=== PATIENT | male | born 1945 | race Caucasian/White ===

== ENCOUNTER 2017-07-22 09:32 | Day surgery (SDC) | payer MEDICARE ==
[2017-07-22] VITALS (10 sets, daily range): BP systolic 115–139; BP diastolic 64–81
[~2017-07-22] VITALS: Ht 162.6 cm; Wt 65.8 kg
[~2017-07-22 09:32] MED LIST: LR 1000ml 1,000 ML IVLG SCH
[2017-07-22] MEDS ORDERED: METFORMIN HCL500 M1 ORAL (10:04)
[2017-07-22] MEDS ORDERED: CRESTOR20 MG ORAL (10:04)
--- NOTE | 2017-07-22 10:34 | Anethesia Preoperative Eval ---
Anesthesia Pre-op PMH/ROS General Date of Evaluation: Jul 22, 2017 Time of Evaluation: 10:28 Anesthesiologist: gerry ASA Score: ASA 3 Mallampati Score Class I : Soft palate, uvula, fauces, pillars visible Class II: Soft palate, uvula, fauces visible Class III: Soft palate, base of uvula visible Class IV: Only hard plate visible Mallampati Classification: Class II Surgeon: litzy Diagnosis: abdominal pain Surgical Procedure: egd/colonoscopy Anesthesia History: none Social History: current smoker Family History: no anesthesia problems Allergies: Coded Allergies: No Known Allergies (Unverified , 07/21/17) Medications: see eMAR Past Medical History Cardiovascular: Reports: other - hypercholesterolemia Gastrointestinal/Genitourinary: Reports: other - ibs, prostate cancer Neurologic/Psychiatric: Reports: other - decreased visual and auditory acuity, Endocrine: Reports: DM Hematology/Immune: Reports: other - cancer Anesthesia Pre-op Phys. Exam Physician Exam Last Vital Signs Date Time Temp Pulse Resp B/P (MAP) Pulse Ox O2 Delivery O2 Flow Rate FiO2 07/22/17 10:05 97.9 68 18 126/72 96 Room Air Constitutional: NAD Neurologic: CN 2-12 intact Cardiovascular: RRR Respiratory: CTA Gastrointestinal: S/NT/ND Airway Exam Mallampati Score: Class II MO: full Neck: supple TMD: 2fb ROM: full Anesthesia Pre-op A/P Risk Assessment & Plan Assessment: asa3 Plan: mac Status Change Before Surgery: No Pre-Antibiotics Drug: QUINCY Gardner Jul 22, 2017 10:34
[2017-07-22] MEDS ORDERED: LR 1000ml 1,000 ML IVLG SCH (10:38)
[2017-07-22] MEDS ORDERED: Midazolam 2mg/2ml Inj IVP PRN (10:45)
[2017-07-22] MEDS ORDERED: DiphenhydrAMINE 50mg/ml Inj IVP PRN (10:45)
[2017-07-22] MEDS ORDERED: fentaNYL 100 mcg/2 mL IV PRN (10:45)
[2017-07-22] MEDS ORDERED: Atropine Inj 1mg/10ml Syr IV PRN (10:45)
--- NOTE | 2017-07-22 11:16 | Short Stay Surgery H&P ---
History of Present Illness History of Present Illness Chief Complaint Abdominal pains and GERDs/screening colon HPI Chad Calles is a 72 year old male who was admitted on for Abdominal Pain/ screening colon Patient History Allergies: Coded Allergies: No Known Allergies (Unverified , 07/21/17) PAST MEDICAL HISTORY: (1) Diabetes Past Surgeries: Social History: Medication History Scheduled Metformin Hcl* (Metformin Hcl*), 500 MG ORAL TWICE A DAY, (Reported) Rosuvastatin Calcium* (Crestor*), 20 MG ORAL DAILY, (Reported) Review of Systems Cardiovascular: Reports: no symptoms Respiratory: Reports: no symptoms Skeletal: Reports: no symptoms Gastrointestinal: Reports: gastro esophageal reflux disease Genitourinary: Reports: no symptoms Neurologic: Reports: no symptoms Endocrine: Reports: diabetes - type 2 Hematologic: Reports: no symptoms Physical Exam Vital Signs Last Vital Signs Date Time Temp Pulse Resp B/P (MAP) Pulse Ox O2 Delivery O2 Flow Rate FiO2 07/22/17 10:05 97.9 68 18 126/72 96 Room Air Skin: normal HENT: normal Heart: normal Lungs: normal Abdomen: abnormal Extremities: normal Genitourinary: normal Plan Plan of Care Upper and lower Gi endoscopies Preop Interventions None. Summary of Findings See the reports. Final Diagnosis: Attestation Are the patient's medical conditions optimized for surgery? Attestation Response: yes MANA PINA Jul 22, 2017 11:16
--- NOTE | 2017-07-22 11:17 | Pre-Procedure Note/Attestation ---
Pre-Procedure Note/Attestation Complete Prior to Procedure Planned Procedure: left Procedure Narrative: Endoscopic examination of the upper and the lower GI tract. Indications for Procedure Pre-Operative Diagnosis: R/O Peptic Ulcer/Gastritis/Colon polyp/tumor. Attestation I attest that I discussed the nature of the procedure; its benefits; risks and complications; and alternatives (and the risks and benefits of such alternatives ), prior to the procedure, with the patient (or the patient's legal petroleum products sales representative). I attest that, if there was a reasonable possibility of needing a blood transfusion, the patient (or the patient's legal petroleum products sales representative) was given the [facility] standardized written summary, pursuant to the [employer] Riesel Blood Safety Act ([place] Health and Safety Code # 1645, as amended). I attest that I re-evaluated the patient just prior to the surgery and that there has been no change in the patient's H&P, except as documented below: YOVANI,SAID Jul 22, 2017 11:17
[2017-07-22] MEDS ORDERED: Lidocaine 1% MPF 10mg/ml 5ml ONE (11:30)
[2017-07-22] MEDS ORDERED: LR 1000ml ONE (11:30)
[2017-07-22] MEDS ORDERED: Propofol 200mg/20ml IV ONE (11:30)
--- NOTE | 2017-07-22 11:52 | Endoscopy Procedure Note ---
Endoscopy Procedure Note Procedures Performed: EGD - Completely Normal Upper GI endoscopy , random biopsy done from gastric body., colonoscopy - Completely Normal total colonoscopy. Specimen: yes Pt Tolerated Procedure Well: Yes Estimated Blood Loss: none Anesthesiologist: Dr. Chen Anesthesia: moderate sedation Medication Given: see anesthesia record Implant(s) used?: No 50 yrs or older w/o bx or poly: Yes 10yrs. F/U not recommended: Yes If not recommended, why?: Med reason:<3 yrs.: System Reason:<3 yrs.: Last colonoscopy >= to 3yrs: Yes MANA PINA Jul 22, 2017 11:52
--- NOTE | 2017-07-22 11:53 | Discharge Instructions ---
Discharge Instructions Discharge Instructions Follow up with: See the docotor after two weeks in the office For Congestive Heart Failure Reminder Report to your physician any weight gain of 5 pounds or more in one week. MANA PINA Jul 22, 2017 11:53
--- NOTE | 2017-07-22 12:43 | Immediate Post-Op Evaluation ---
Immediate Post-Op Evalulation Immediate Post-Op Evalulation Procedure: egd/colonoscopy Date of Evaluation: Jul 22, 2017 Time of Evaluation: 12:12 IV Fluids: 250ml lr Blood Products: none Estimated Blood Loss: negligible Blood Pressure Systolic: 126 Blood Pressure Diastolic: 72 Pulse Rate: 55 Respiratory Rate: 18 O2 Sat by Pulse Oximetry: 99 Temperature (Fahrenheit): 97.1 Pain Score (1-10): 0 Nausea: No Vomiting: No Complications none Patient Status: awake, reacts, patent Hydration Status: adequate Drug: QUINCY Gardner Jul 22, 2017 12:43
--- NOTE | 2017-07-22 12:45 | 48 Hour Post Anesthesia Eval ---
Post Anesthesia Evaluation Procedure: egd/colonoscopy Date of Evaluation: Jul 22, 2017 Time of Evaluation: 12:14 Blood Pressure Systolic: 122 0: 77 Pulse Rate: 77 Respiratory Rate: 18 Temperature (Fahrenheit): 97.1 O2 Sat by Pulse Oximetry: 100 Airway: patent Nausea: No Vomiting: No Pain Intensity: 0 Hydration Status: adequate Cardiopulmonary Status: stable Mental Status/LOC: patient returned to baseline Post-Anesthesia Complications: none Follow-up care needed: N/A QUINCY STAPLES Jul 22, 2017 12:45
--- NOTE | 2017-07-22 21:31 | Procedure Note ---
DATE OF PROCEDURE: 07/22/2017 SURGEON: Concepción Little M.D. PROCEDURE: Total colonoscopy. PREOPERATIVE DIAGNOSES: 1. Screening colonoscopy. 2. Abdominal pain. POSTOPERATIVE DIAGNOSIS: Completely normal total colonoscopy. MEDICATION USED: Per Dr. Chen, anesthesiologist. INSTRUMENT: GIF Olympus video colonoscope. DESCRIPTION OF PROCEDURE: The patient after arriving in the endoscopy unit, was told about risks and benefits of the procedure, which he accepted and signed informed consent. He was then put on the left lateral decubitus position. After adequate IV sedation, the scope was gently passed through the anal area and examination of this section revealed completely normal finding without any evidence of tumor, polyps, etc. Finally, the scope was passed through the left colon reaching towards the splenic flexure, transverse colon, hepatic flexure, and finally was guided into the ascending colon all the way to the base of the cecum. All these areas also remained to be completely normal. There was no any evidence of polyps, tumors, stricture, bleeding site, colitis, ulcers, etc. Finally, within 6 minutes, the scope was gradually pulled out and no other findings were noted and the colon cleanup was adequate. The patient tolerated the procedure well and left the endoscopy room in a good condition. Concepción Little M.D. DR: Shantell JOB#: [id number] CC:
--- NOTE | 2017-07-22 21:31 | Operative Note - Dictated ---
SURGEON: Concepción Little M.D. PROCEDURE: Esophagogastroduodenoscopy with biopsy. PREOPERATIVE DIAGNOSES: 1. Abdominal pain. 2. History of gastroesophageal reflux. POSTOPERATIVE DIAGNOSIS: Completely normal upper gastrointestinal endoscopy, biopsy was taken per random from gastric body. MEDICATION USED: Per Dr. Chen, anesthesiologist. INSTRUMENT: GIF Olympus upper gastrointestinal video endoscope. DESCRIPTION OF PROCEDURE: The patient after arriving in the endoscopy unit, was told about risks and benefits of the procedure, which he accepted and signed informed consent. At this time, he was put on the left lateral decubitus position. After adequate IV sedation, the scope was gently passed through the cricopharyngeal area and was lodged in the upper esophagus and gradually advanced towards gastroesophageal junction. The entire length of esophagus looked normal and there was no any evidence of ulceration, inflammatory process, stricture, etc. GE junction also looked normal without any evidence of Uriostegui's or hiatal hernia. At this time, the scope was advanced into the stomach. Gastric cavity was distended with insufflation of air. The areas of the fundus and the body and the antrum were examined in account auditor fashion, which revealed completely normal without any evidence of inflammatory process, gastritis, tumor, polyps, bleeding site, etc. At this point, one random biopsy from gastric body obtained and subsequently the scope was retroflexed and the area of the gastroesophageal junction was examined in a closer fashion, which revealed no pathology. Finally, the scope was passed through the pylorus. First and second portion of duodenum were found also to be completely normal. At this time, the scope was pulled out and the procedure was terminated. The patient tolerated the procedure well. Concepción Little M.D. DR: Emy JOB#: [id number] CC:
== END 2017-07-22 13:30 | disposition home or self-care (01) ==
LOC: GAS 09:32
DX: Z12.11 Encounter for screening for malignant neoplasm of colon (principal); R10.9 Unspecified abdominal pain; E11.9 Type 2 diabetes mellitus without complications; K21.9 Gastro-esophageal reflux disease without esophagitis; E78.00 Pure hypercholesterolemia, unspecified; F17.200 Nicotine dependence, unspecified, uncomplicated; Z79.84 Long term (current) use of oral hypoglycemic drugs; Z85.46 Personal history of malignant neoplasm of prostate
CPT/HCPCS: 45378; 82962; J2704; J7120; 94003; 94150